=== PATIENT | female | born 1965 | race Two or more races ===

== ENCOUNTER 2020-06-10 19:49 | Inpatient (IN) | payer OTHER ==
[~2020-06-10] VITALS: Ht 170.2 cm; Wt 97.1 kg
--- NOTE | 2020-06-10 21:00 | NUR ---
C/O R UNDERBREAST PAIN X1 WEEK, WORSE IN THE PAST 3 DAYS. - sob
--- NOTE | 2020-06-10 21:03 | NUR ---
DORETHA MITCHELL AT BED SIDE
[2020-06-10] MEDS ORDERED: ONDANSETRON HCL/PF 4 MG/2 ML VIAL ONE (21:09)
[2020-06-10] MEDS ORDERED: MORPHINE SULFATE INJ 4 MG/ML DISP.SYRIN ONE (21:10)
[2020-06-10 21:26] LABS: BASOPHILS % (AUTO) 0.7 % (0.0-2.0); EOSINOPHILS % (AUTO) 1.3 % (0.0-6.0); HEMATOCRIT 36 % (33-45); HEMOGLOBIN 11.5 g/dL (11.5-14.8); LYMPHOCYTES # (AUTO) 1.7 /CMM (0.8-4.8); LYMPHOCYTES % (AUTO) 32.2 % (20.0-44.0); MEAN CORPUSCULAR HGB CONC 32 g/dl (31.0-36.0); MEAN CORPUSCULAR VOLUME 73 fL (82-100); MONOCYTES # (AUTO) 0.6 /CMM (0.1-1.30); MONOCYTES % (AUTO) 10.9 % (2.0-12.0); NEUTROPHILS # (AUTO) 2.8 /CMM (1.8-8.9); NEUTROPHILS % (AUTO) 54.9 % (43.0-81.0); PLATELET COUNT (AUTO) 256 /CMM (150-450); RED BLOOD CELL COUNT(AUTO) 4.93 MIL/uL (4.0-5.2); WHITE BLOOD COUNT (AUTO) 5.2 K/uL (4.3-11.0)
--- NOTE | 2020-06-10 21:29 | NUR ---
X RAY AT BED SIDE
[2020-06-10] MEDS ORDERED: MORPHINE SULFATE INJ 2 MG/ML DISP.SYRIN IV ONE (21:30)
[2020-06-10] MEDS ORDERED: ONDANSETRON HCL/PF 4 MG/2 ML VIAL IVP ONE (21:30)
[2020-06-10] MEDS ORDERED: IV NS 0.9% 1,000 ML BAG IV ONE (21:30)
[2020-06-10 21:44] LABS: ALBUMIN 3.7 g/dL (3.4-5.0); BILIRUBIN,DIRECT 0.1 mg/dL (0.0-0.2); BILIRUBIN,TOTAL 0.6 mg/dL (0.2-1.0); CALCIUM, SERUM 8.5 mg/dL (8.5-10.1); CREATININE 1.2 mg/dL (0.6-1.3); POTASSIUM 3.7 mmol/L (3.5-5.1); TOTAL PROTEIN, SERUM 7.8 g/dL (6.4-8.2)
[2020-06-10] MEDS ORDERED: ENALAPRILAT INJ (1.25 MG/ML) 1.25 MG/ML VIAL IV ONE (23:30)
--- NOTE | 2020-06-10 23:39 | NUR ---
COVID SWABBED, SENT TO LAB
--- NOTE | 2020-06-11 00:05 | NUR ---
multiple attempt to obtain urine sample , unsuccessful
--- NOTE | 2020-06-11 00:18 | NUR ---
spoke to liza hernandez over the phone. verbal auth to admit the pt obtained
--- NOTE | 2020-06-11 00:24 | NUR ---
clinicals and face sheet faxed to david ALVARES
[2020-06-11] MEDS ORDERED: IV NS 0.9% 1,000 ML IV PRN (00:47)
[2020-06-11 01:00] LABS: APPEARANCE,URINE CLOUDY (CLEAR); BILIRUBIN,URINE NEGATIVE (NEGATIVE); BLOOD, URINE TRACE-INTA Ery/uL (NEGATIVE); COLOR,URINE YELLOW (YELLOW); KETONES,URINE NEGATIVE (NEGATIVE); LEUKOCYTE ESTERASE ,URINE MODERATE (NEGATIVE); NITRITE, URINE NEGATIVE (NEGATIVE); PROTEIN,URINE NEGATIVE (NEGATIVE); UGLUCOSE NEGATIVE (NEGATIVE); UROBILINOGEN,URINE 0.2 EU/dL (0.2)
[2020-06-11] MEDS ORDERED: ONDANSETRON HCL/PF 4 MG/2 ML VIAL IVP PRN (01:00)
[2020-06-11] MEDS ORDERED: Z GUARD REMEDY 2 OZ OINT TP PRN (01:00)
[2020-06-11] MEDS ORDERED: MORPHINE SULFATE INJ 2 MG/ML DISP.SYRIN IV PRN (01:00)
[2020-06-11] MEDS ORDERED: MAGNESIUM HYDROXIDE 30 ML UDC PO PRN (01:00)
[2020-06-11] MEDS ORDERED: MAG HYDROX/AL HYDROX/SIMETH 30 ML UDC PO PRN (01:00)
[2020-06-11] MEDS ORDERED: ACETAMINOPHEN 325 MG TABLET PO PRN (01:00)
[2020-06-11] MEDS ORDERED: ZOLPIDEM TARTRATE 5 MG TABLET PO PRN (01:00)
[2020-06-11] MEDS ORDERED: DIPH-530 PO (01:01)
[2020-06-11 01:27] LABS: BACTERIA,URINE Few /HPF (None Seen); SQUAMOUS EPITHELIAL CELL,UR Few /HPF (None Seen); WBC,URINE TOO NUMEROUS TO COUN /HPF (0-3)
--- NOTE | 2020-06-11 01:50 | NUR ---
alicia given to mackenzie on third floor
[2020-06-11 02:00] VITALS: BP 163/90
--- NOTE | 2020-06-11 02:22 | NUR ---
pt was transferred to 326-1 under acls,
--- NOTE | 2020-06-11 02:30 | NUR ---
DARKLIGHT INSPECTOR ADMITTING NOTES PATIENT ARRIVED TO UNIT VIA GURNEY ACCOMPANIED BY 2 ER STAFF; PATIENT A/OX4, BREATHING EVEN AND UNLABORED; TOLERATING ROOM AIR WELL; NO SOB NOTED; NO DISTRESS NOTED AT THIS TIME; VITALS STABLE; PATIENT REPORTED NO MEDICAL HISTORY; SURGICAL HISTORY AND FAMILY HISTORY OBTAINED; BELONGINGS CHECKED; SKIN ASSESSMENT COMPLETED, SKIN INTACT; TELE MONITOR ATTACHED, READS SINUS CHADD 49BPM; PATIENT REPORTED SHE LIVES WITH DAUGHTER, SHUN [phone]. PATIENT REPORTED SHE SMOKES WEED DAILY AND TRIED A SMALL AMOUNT OF COCAINE YESTERDAY, PATIENT DRINKS OCCASIONALLY WELL; L HAND # 20 INTACT AND PATENT, FLUSHING WELL; PATIENT ORIENTED TO UNIT AND STAFF; SAFETY PRECAUTIONS IMPLEMENTED; BED LOCKED IN LOW POSITION; SIDE RAILSX2; CALL LIGHT WITHIN EASY REACH; WILL CONT TO MONITOR; AWAITING MD ORDERS
--- NOTE | 2020-06-11 03:50 | NUR ---
LITHOGRAPHED PLATE INSPECTOR NOTES MD ORDERS RECEIVED AND CARRIED OUT; PATIENT REQUESTING IVF BE STARTED WHEN SHE WAKES UP SHE WOULD LIKE TO SLEEP THROUGHOUT THE NIGHT; PATIENT AWARE OF IMPORTANCE; WILL CONT TO MONITOR
[2020-06-11 04:00] VITALS: BP 135/75
--- NOTE | 2020-06-11 04:16 | NUR ---
CLIENT RELATIONSHIP EXECUTIVE NOTES PATIENT ASSISTED TO BATHROOM AND BACK TO BED; PATIENT REQUESTING PAIN MEDICATION; PATIENT CRYING DUE TO 9/10 PAIN; MORPHINE ADMINISTERED PER MD ORDER; WILL CONT TO MONITOR
--- NOTE | 2020-06-11 07:02 | NUR ---
HOT PATCHER CLOSING NOTES PATIENT RESTING IN BED COMFORTABLY; A/OX4, BREATHING EVEN AND UNLABORED; TOLERATING ROOM AIR WELL; NO SOB NOTED; TELE MONITOR READS SINUS CHADD 42BPM; L HAND # 20 INTACT AND PATENT, INFUSING NS @ 80ML/HR; TOLERATING IVF WELL; PATIENT ABLE TO AMBULATE WITH STEADY GAIT, WITH STAND BY ASSIST; PATIENT ABLE TO MAKE NEEDS KNOWN; NPO STATUS MAINTAINED; ALL NEEDS RENDERED; SAFETY PRECAUTIONS IMPLEMENTED; BED LOCKED IN LOW POSITION; SIDE RAILSX2; CALL ILGHT WITHIN EASY REACH; WILL ENDORSE SISSY TO ONCOMING SHIFT
[2020-06-11 08:00] VITALS: BP 139/68
--- NOTE | 2020-06-11 08:00 | NUR ---
ANY COMMODITY BUYER AM NOTES PATIENT RESTING IN BED COMFORTABLY; A/OX4, BREATHING EVEN AND UNLABORED; TOLERATING ROOM AIR WELL; NO SOB NOTED; TELE MONITOR READS SINUS CHADD 56 BPM; L HAND # 20 INTACT AND PATENT, INFUSING NS @ 80ML/HR; TOLERATING IVF WELL; PATIENT ABLE TO AMBULATE WITH STEADY GAIT, WITH STAND BY ASSIST; PATIENT ABLE TO MAKE NEEDS KNOWN; NPO STATUS MAINTAINED; SAFETY PRECAUTIONS IMPLEMENTED; BED LOCKED IN LOW POSITION; SIDE RAILSX2; CALL LIGHT PLACED WITHIN EASY REACH;
[2020-06-11] MEDS: HYDROCODONE/APAP 5/325MG TABLET PO PRN ×2 (14:28→21:00)
[2020-06-11 16:00] VITALS: BP 139/68
--- NOTE | 2020-06-11 16:33 | NUR ---
PT WAS SEEN BY DR RODRIGUEZ (TEST CARRIER)WITH ORDERS TO F/U WITH TEST CARRIER OUTPT WITH ORDERS FOR DIFLUCAN PO FOR PT'S C/O YEAST INFECTION AND CARRIED OUT.
[2020-06-11] MEDS ORDERED: FLUCONAZOLE (100 MG) 100 MG TABLET PO SCH (17:00)
[2020-06-11] MEDS ORDERED: CEFTRIAXONE 1 G in IV D5W 50 ML IV SCH (18:30)
--- NOTE | 2020-06-11 18:52 | NUR ---
PT RESTING IN BED DENYING ANY PAIN OR DISTRESS.WITH ONGOING IVF NS AT 80 ML/HR INFUSING WELL.PT'S ROCEPHIN IS STILL NOT AVAILABLE AT THIS TIME.WE WILL ENDORSED TO SHORT ORDER COOK NURSE TO ADMINISTER THE ROCEPHIN IV ATB. CALL LIGHT PLACED WITHIN REACH.
[2020-06-11 20:00] VITALS: BP 142/77
--- NOTE | 2020-06-11 20:00 | NUR ---
MS/RN OPENING NOTES RECEIVED PATIENT IN BED, ALERT, ORIENTED X3, ABLE TO VERBALIZE NEEDS, REPORTED MODERATE ABDOMINAL PAIN, NEEDED NORCO 5-325 MG PO GIVEN TOLERATED WELL, BED LOCKED, CALL LIGHTS WITHIN REACH, ON IV ANTIBIOTIC , PROVIDED AND OFFERED FLUIDS, ASSISTED TO BATHROOM. WILL MONITOR.
--- NOTE | 2020-06-12 06:53 | NUR ---
326-1 MS/RN NOTES PATIENT ABLE TO SLEEP DUEING THE NIGHT, ALERT, ORIENTED X3, ABLE TO VERBALIZE NEEDSM PAIN MANAGED WITH MEDICATION WITH RELIEF, ATTENDED ALL NEEDS, BED LOCKED, CALL LIGHTS WITHIN REACH, IV SITE ON LEFT HAND PATENT WILL ENDORSE TO AM RN FOR SISSY.
--- NOTE | 2020-06-12 07:30 | NUR ---
MS/RN Opening note Patient received from restaurant shift supervisor. A/O X4, appears in no pain, sat upright in bed talking on cell phone. No shortness of breath noted, room air [id number] All questions and concerns addressed, call light within reach. Will continue to monitor and ensure safety.
[2020-06-12] MEDS: HYDROCODONE/APAP 5/325MG TABLET PO PRN (07:55)
[2020-06-12 08:00] VITALS: BP 157/85
--- NOTE | 2020-06-12 08:00 | NUR ---
MS/RN Pain Complaining of pain to right side of abdomen, norco 5/325mg administered, will monitor effectiveness. MOM also administeredd as no bowel movement since admission.
[2020-06-12 08:05] LABS: ALBUMIN 3.2 g/dL (3.4-5.0); BILIRUBIN,TOTAL 0.4 mg/dL (0.2-1.0); CALCIUM, SERUM 8.4 mg/dL (8.5-10.1); CREATININE 1.2 mg/dL (0.6-1.3); POTASSIUM 4.1 mmol/L (3.5-5.1); TOTAL PROTEIN, SERUM 6.8 g/dL (6.4-8.2)
[2020-06-12 08:20] LABS: BASOPHILS % (AUTO) 0.7 % (0.0-2.0); EOSINOPHILS % (AUTO) 1.2 % (0.0-6.0); HEMATOCRIT 36 % (33-45); HEMOGLOBIN 11.2 g/dL (11.5-14.8); LYMPHOCYTES # (AUTO) 1.2 /CMM (0.8-4.8); LYMPHOCYTES % (AUTO) 35.4 % (20.0-44.0); MEAN CORPUSCULAR HGB CONC 31 g/dl (31.0-36.0); MEAN CORPUSCULAR VOLUME 74 fL (82-100); MONOCYTES # (AUTO) 0.4 /CMM (0.1-1.30); MONOCYTES % (AUTO) 11.3 % (2.0-12.0); NEUTROPHILS # (AUTO) 1.8 /CMM (1.8-8.9); NEUTROPHILS % (AUTO) 51.4 % (43.0-81.0); PLATELET COUNT (AUTO) 219 /CMM (150-450); RED BLOOD CELL COUNT(AUTO) 4.83 MIL/uL (4.0-5.2); WHITE BLOOD COUNT (AUTO) 3.5 K/uL (4.3-11.0)
--- NOTE | 2020-06-12 08:35 | NUR ---
MS/RN Medications Morning medications administered as ordered.
[2020-06-12] MEDS ORDERED: METR70GE2 VG (08:57)
[2020-06-12] MEDS ORDERED: CIPR500T5 PO (08:57)
--- NOTE | 2020-06-12 09:00 | NUR ---
MS/RN S/B Dr Rico Seen by Dr Rico - pain non cardiac related, okay to discharge from cardiology stand point.
--- NOTE | 2020-06-12 09:38 | NUR ---
MS/RN S/B Dr Stahl Seen by DNP - patient to be discharged to home today and follow up with primary care doctor for further evaluation and treatment of vaginal discharge. Also to follow up with Dr Dowd from [facility] to have elective surgery arranged for right ovarian dermoid cyst.
--- NOTE | 2020-06-12 09:42 | NUR ---
MS/RN Exit care Discharge paperwork prepared ready for discharge later today.
[2020-06-12 10:25] LABS: IRON, SERUM 41 ug/dl (50-175); TOTAL IRON BINDING CAPACITY 312 ug/dl (250-450)
[2020-06-12] MEDS ORDERED: LISI-607 PO (11:29)
[2020-06-12] MEDS ORDERED: LISINOPRIL (5MG) 5 MG TABLET PO SCH (11:30)
--- NOTE | 2020-06-12 11:33 | NUR ---
MS/aircraft general repair mechanic Patient discharged to home in stable condition. Heplock and name bands removed. All personal belongings returned to patient and accounted for on belongings list. Provided with copy of medical record and exit care, educated as to the importance of making follow up appointment with primary care doctor and with welcome center attendant. Provided with name, address and office number of FLEXOGRAPHIC PRESS PLATE SETTER recommended to patient by Dr Coronado. Paper prescription given to patient for antibiotic and vaginal gel, educated as to what each medication was for and any possible side effects. Patient stated understanding of each medication. Electronic prescription for blood pressure medication sent to patient's preferred pharmacy, pharmacy already verified with patient. Blood pressure upon discharge elevated, Dr Stahl aware, order entered for lisinopril, patient not willing to wait for medication to be available, stating that she couldn't keep her daughter waiting. Escorted to main lobby via wheelchair with CLIENT SERVICE ADMINISTRATOR.
[2020-06-12] MEDS ORDERED: METRONIDAZOLE 0.75% GEL 70 GM TUBE VG SCH (22:00)
== END 2020-06-12 11:40 | disposition home or self-care (01) | DRG 532 ==
LOC: ER 19:55 → MED 06-11 01:41 → TELE 06-11 02:35 → MED 06-11 11:24
PROVIDERS: ADMIT Nurse Practitioner Acute Care; ATTEND Nurse Practitioner Acute Care
DX: D27.0 Benign neoplasm of right ovary (principal); B02.9 Zoster without complications; I10 Essential (primary) hypertension; D64.9 Anemia, unspecified; D68.59 Other primary thrombophilia; I16.0 Hypertensive urgency; F32.9 Major depressive disorder, single episode, unspecified; I25.10 Atherosclerotic heart disease of native coronary artery without angina pectoris; N39.0 Urinary tract infection, site not specified; E66.01 Morbid (severe) obesity due to excess calories; K57.30 Diverticulosis of large intestine without perforation or abscess without bleeding
CPT/HCPCS: 36415; 71045-TC; 80048-TC; 80053-TC; 80076-TC; 81000-TC; 83540-TC; 83690-TC; 83735-TC; 84100-TC; 85025-TC; 87081-TC; 87086-TC; 93307-TC; C9803-CS; G0378; J0696; J2270; J2405; J7030; J7060